=== PATIENT | female | born 1955 | race Caucasian/White ===

== ENCOUNTER 2020-01-14 17:05 | Inpatient (IN) | payer MEDICARE, OTHER ==
[~2020-01-14] VITALS: Ht 177.8 cm; Wt 93.2 kg
[~2020-01-14 17:05] MED LIST: KEFLEX500 MG PO; Z PROPRANOLOL HCL PO; Z.1.LISINOPRIL-HCT1 PO
[2020-01-14] MEDS ORDERED: LEVALBUTEROL HCL SOLN NEBU 1.25 MG/3 ML NEB INH ONE (18:15)
[2020-01-14] MEDS ORDERED: ENOXAPARIN INJ 80 MG/0.8 ML SYR SC STA (18:15)
[2020-01-14] MEDS ORDERED: IPRATROPIUM BROMIDE 0.02% 2.5 ML NEB NEB STA (18:15)
[2020-01-14] MEDS ORDERED: METHYLPREDNISOLONE SOD SUCC 125 MG/2ML VIAL IV STA (18:15)
[2020-01-14] MEDS ORDERED: SODIUM CHLORIDE 0.9% 1000ML 1,000 ML IV STA ×2 (18:15)
[2020-01-14 18:30] LABS: BASOPHILS % 0.3 % (0.0-1.0); EOSINOPHILS # (AUTO) 0.2 (0.0-0.4); EOSINOPHILS % 1.6 % (0.0-6.0); HEMATOCRIT 40.2 % (34.2-44.1); HEMOGLOBIN 12.7 g/dL (12.0-16.0); LYMPHOCYTES # (AUTO) 3.2 (1.0-3.2); LYMPHOCYTES % 27.3 % (18.0-39.1); MEAN CORPUSCULAR HEMOGLOBIN 26.2 pg (28-32); MEAN CORPUSCULAR HGB CONC 31.6 g/dL (31-35); MEAN CORPUSCULAR VOLUME 82.9 fL (81-99); MONOCYTES # (AUTO) 1.1 (0.2-0.8); MONOCYTES % 9.4 % (4.4-11.3); NEUTROPHILS # (AUTO) 7.1 (2.1-6.9); NEUTROPHILS % 60.9 % (38.7-80.0); PLATELET COUNT 321 x10e3/uL (140-360); RED BLOOD COUNT 4.85 x10e6/uL (3.6-5.1); RED CELL DISTRIBUTION WIDTH 13.7 % (11.7-14.4)
[2020-01-14] MEDS ORDERED: MORPHINE SULFATE 2 MG/ML SYR 1ML IV PRN (18:30)
[2020-01-14] MEDS ORDERED: ENOXAPARIN SODIUM INJ 100 MG/ML SYR SC SCH (18:30)
[2020-01-14] MEDS ORDERED: SODIUM CHLORIDE FLUSH 10 ML SYR INJ PRN (18:30)
[2020-01-14] MEDS ORDERED: ASPIRIN 81 MG CHEW TAB PO ONE (18:30)
[2020-01-14] MEDS ORDERED: NITROGLYCERIN 0.4 MG SUBL SL PRN (18:30)
[2020-01-14] MEDS ORDERED: FAMOTIDINE 20 MG/2 ML VIAL IV SCH (18:30)
[2020-01-14] MEDS ORDERED: ONDANSETRON HCL INJ 2MG/ML 2ML 2 MG/ML VIAL IV PRN (18:30)
[2020-01-14 18:34] LABS: INR 0.81; PROTHROMBIN TIME 11.6 seconds (11.9-14.5)
[2020-01-14 18:35] LABS: PARTIAL THROMBOPLASTIN TIME 30.1 seconds (23.8-35.5)
--- NOTE | 2020-01-14 18:42 | Emergency Department Note ---
History of Present Illnes History of Present Illness Chief Complaint: Respiratory History of Present Illness This is a 64 year old female . Historian: Patient Arrival Mode: Car Marketing Assistant Retail Division Required: No Past Medical/Family History Physician Review I have reviewed the patient's past medical and family history. Any updates have been documented here. 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, CONGENITAL, ADHESIONS shingles Past Surgical History: Appendectomy, Hysterectomy Social History Any Illegal Drug Use: No TB Exposure/Symptoms: No Physically hurt or threatened: No Family History Family history of heart diseas: No Other Last Tetanus: NO Any Pre-Existing Lines (PICC,: No Is patient up to date on immun: Yes Review of Systems ROS Narrative c/o sob with non radiating chest tightness worse at night denies n/v/d today Review of Systems Constitutional: Reports no symptoms EENTM: Reports no symptoms Cardiovascular: Reports chest pain Respiratory: Reports dyspnea, Reports dyspnea on exertion Gastrointestinal: Reports no symptoms Genitourinary: Reports no symptoms Musculoskeletal: Reports no symptoms Integumentary: Reports no symptoms Neurological: Reports no symptoms Psychological: Reports no symptoms Endocrine: Reports no symptoms Hematological/Lymphatic: Reports no symptoms Physical Exam Related Data Allergies: Coded Allergies: Penicillins (Verified Allergy, Unknown, 07/15/19) Triage Vital Signs Vital Signs Date Time Temp Pulse Resp B/P (MAP) Pulse Ox O2 Delivery O2 Flow Rate FiO2 01/14/20 18:15 98.2 60 16 137/65 97 Room Air Vital signs reviewed: Yes Physical Exam CONSTITUTIONAL Constitutional: Present well-developed, Present well-nourished HENT HENT: Present normocephalic, Present atraumatic, Present oropharynx clear/moist, Present nose normal HENT L/R: Present left ext ear normal, Present right ext ear normal EYES Eyes: Reports PERRL, Reports conjunctivae normal NECK Neck: Present ROM normal PULMONARY Pulmonary: Present effort normal, Present breath sounds normal CARDIOVASCULAR Cardiovascular: Present regular rhythm, Present heart sounds normal, Present capillary refill normal, Present normal rate GASTROINTESTINAL Abdominal: Present soft, Present nontender, Present bowel sounds normal GENITOURINARY Genitourinary: Present exam deferred SKIN Skin: Present warm, Present dry MUSCULOSKELETAL Musculoskeletal: Present ROM normal NEUROLOGICAL Neurological: Present alert, Present oriented x 3, Present no gross motor or sensory deficits PSYCHOLOGICAL Psychological: Present mood/affect normal, Present judgement normal Results Laboratory Result Diagram: 01/14/20 1812 Laboratory Laboratory Tests Test 01/14/20 18:12 White Blood Count 11.65 x10e3/uL (4.8-10.8) Red Blood Count 4.85 x10e6/uL (3.6-5.1) Hemoglobin 12.7 g/dL (12.0-16.0) Hematocrit 40.2 % (34.2-44.1) Mean Corpuscular Volume 82.9 fL (81-99) Mean Corpuscular Hemoglobin 26.2 pg (28-32) Mean Corpuscular Hemoglobin Concent 31.6 g/dL (31-35) Red Cell Distribution Width 13.7 % (11.7-14.4) Platelet Count 321 x10e3/uL (140-360) Neutrophils (%) (Auto) 60.9 % (38.7-80.0) Lymphocytes (%) (Auto) 27.3 % (18.0-39.1) Monocytes (%) (Auto) 9.4 % (4.4-11.3) Eosinophils (%) (Auto) 1.6 % (0.0-6.0) Basophils (%) (Auto) 0.3 % (0.0-1.0) Neutrophils # (Auto) 7.1 (2.1-6.9) Lymphocytes # (Auto) 3.2 (1.0-3.2) Monocytes # (Auto) 1.1 (0.2-0.8) Eosinophils # (Auto) 0.2 (0.0-0.4) Basophils # (Auto) 0.0 (0.0-0.1) Absolute Immature Granulocyte (auto 0.06 x10e3/uL (0-0.1) Prothrombin Time 11.6 seconds (11.9-14.5) Prothromb Time International Ratio 0.81 Activated Partial Thromboplast Time 30.1 seconds (23.8-35.5) Lab results reviewed: Yes Imaging Imaging results reviewed: Yes Diagnostics Tests Diagnostic test(s) reviewed: Yes Procedures 12 Lead ECG Interpretation ECG Interpretation : ECG: ECG 1 Marketing Assistant Retail Division: Interpreted by ED physician Date: Jan 14, 2020 Time: 18:10 Prior ECG tracings: reviewed Rhythm: sinus bradycardia Conduction: incomplete RBBB Assessment & Plan Medical Decision Making MDM blood work, CXR, EKG to R/O cardiac event Discussed admission with patient while in triage assessing sergio. All questions answered. Assessment & Plan Final Impression: (1) COPD (chronic obstructive pulmonary disease) (2) Dyspnea (3) Chest pain Depart Disposition: ADMITTED Last Vital Signs Date Time Temp Pulse Resp B/P (MAP) Pulse Ox O2 Delivery O2 Flow Rate FiO2 01/14/20 18:15 98.2 60 16 137/65 97 Room Air Home Meds Active Scripts Cephalexin Monohydrate (KEFLEX) 500 Mg Capsule, 500 MG PO Q6HR, #40 TAB 0 Refills Prov:MELCHOR SHIELDS DO 07/15/19 Reported Medications Propranolol Hcl (Propranolol Hcl) 40 Mg Tablet, 2 TAB PO BID 01/14/12 Lisinopril/Hydrochlorothiazide (Lisinopril-Hctz 20-12.5 Mg Tab) 1 Each Tablet, 2 EACH PO BID 01/14/12 Medications in the ED Ipratropium [place] 2.5 ml ONCE STAT NEB ; Start 01/14/20 at 18:15; Stop 01/14/20 at 18:23; Status DC Aspirin 324 mg ONCE PO ; Start 01/14/20 at 18:45; Stop 01/14/20 at 19:59 Sodium Chloride 1,000 ml @ 0 mls/hr Q0M STAT IV ; Start 01/14/20 at 18:15; Stop 01/14/20 at 18:23; Status DC Sodium Chloride 1,000 ml @ 125 mls/hr Q8H STAT IV ; Start 01/14/20 at 18:15; Stop 01/15/20 at 02:14 Levofloxacin/ Dextrose 100 ml @ 100 mls/hr ONCE STAT IV ; Start 01/14/20 at 18:15; Stop 01/14/20 at 19:14; Status UNV Methylprednisolone Sodium Succinate 125 mg ONCE STAT IV ; Start 01/14/20 at 18:15; Stop 01/14/20 at 18:23; Status DC Famotidine 20 mg ONCE STAT IV ; Start 01/14/20 at 18:15; Stop 01/14/20 at 18:16; Status UNV Levalbuterol HCl 2.25 mg ONCE ONCE INH ; Start 01/14/20 at 18:15; Stop 01/14/20 at 18:23; Status DC Enoxaparin Sodium 90 mg NOW STAT SC ; Start 01/14/20 at 18:15; Stop 01/14/20 at 18:16; Status UNV Aspirin 81 mg QAM PO ; Start 01/15/20 at 09:00; Stop 02/14/20 at 08:59 Enoxaparin Sodium 90 mg Q12H SC ; Start 01/14/20 at 18:30; Stop 01/21/20 at 18:29; Status UNV Metoprolol Tartrate 25 mg Q12H PO ; Start 01/14/20 at 18:30; Stop 02/13/20 at 18:29; Status UNV Lisinopril 10 mg DAILY PO ; Start 01/15/20 at 09:00; Stop 02/14/20 at 08:59 Nitroglycerin 0.4 mg Q5M PRN SL CHEST PAIN; Start 01/14/20 at 18:30; Status UNV Morphine Sulfate 2 mg Q3H PRN IV MODERATE PAIN (4-6); Start 01/14/20 at 18:30; Stop 01/21/20 at 18:29; Status UNV Simvastatin 20 mg HS PO ; Start 01/14/20 at 21:00; Stop 02/13/20 at 20:59; Status UNV Famotidine 20 mg Q12H IV ; Start 01/14/20 at 18:30; Stop 02/13/20 at 18:29; Status UNV Ondansetron HCl 4 mg Q4H PRN IV NAUSEA AND VOMITING; Start 01/14/20 at 18:30; Stop 02/13/20 at 18:29; Status UNV Levalbuterol HCl 1.25 mg RQ6H INH ; Start 01/14/20 at 19:00; Stop 02/13/20 at 18:59; Status UNV Ipratropium [place] 2.5 ml RQ6H NEB ; Start 01/14/20 at 19:00; Stop 02/13/20 at 18:59; Status UNV Aspirin 81 mg PRN ONCE PO ; Start 01/14/20 at 18:30; Stop 01/14/20 at 18:39; Status DC Sodium Chloride 10 ml PRN PRN INJ IV SITE FLUSH; Start 01/14/20 at 18:30; Stop 02/13/20 at 18:29; Status UNV Methylprednisolone Sodium Succinate 40 mg Q6HR IV ; Start 01/15/20 at 00:00; Stop 01/22/20 at 00:00; Status UNV NOLAN BLACKBURN Jan 14, 2020 18:42
[2020-01-14 18:43] LABS: ALANINE AMINOTRANSFERASE 15 IU/L (0-55); ALBUMIN 3.7 g/dL (3.5-5.0); ALKALINE PHOSPHATASE 78 IU/L (40-150); ANION GAP 11.7 mmol/L (8-16); BLOOD UREA NITROGEN 14 mg/dL (7-26); BUN/CREATININE RATIO 17 (6-25); CALCIUM 9.7 mg/dL (8.4-10.2); CARBON DIOXIDE 29 mmol/L (22-29); CHLORIDE 97 mmol/L (98-107); CREATINE KINASE 57 IU/L (29-168); CREATININE, SERUM 0.84 mg/dL (0.57-1.11); EST GLOMERULAR FILTRATION RATE > 60 ML/MIN (60-); GLUCOSE 84 mg/dL (74-118); LIPASE 31 U/L (8-78); POTASSIUM 3.7 mmol/L (3.5-5.1); SODIUM 134 mmol/L (136-145)
[2020-01-14] MEDS ORDERED: ASPIRIN 81 MG CHEW TAB PO NR (18:45)
[2020-01-14] MEDS ORDERED: METHYLPREDNISOLONE SOD SUCC 125 MG/2ML VIAL IV NR (18:45)
[2020-01-14] MEDS ORDERED: FAMOTIDINE 20 MG/2 ML VIAL IV NR (18:45)
[2020-01-14] MEDS: IPRATROPIUM BROMIDE 0.02% 2.5 ML NEB NEB SCH ×2 (19:00→23:30)
[2020-01-14] MEDS: LEVALBUTEROL HCL SOLN NEBU 1.25 MG/3 ML NEB INH SCH ×2 (19:00→23:30)
--- NOTE | 2020-01-14 19:16 | Diagnostic Imaging Report ---
EXAMINATION: CHEST SINGLE (PORTABLE) INDICATION: ^ERMD ORDER ^[id number] ^1855 ^Y COMPARISON: None FINDINGS: AP view TUBES and LINES: None. LUNGS: Lungs are well inflated. There is no evidence of pneumonia or pulmonary edema. PLEURA: No pleural effusion or pneumothorax. HEART AND MEDIASTINUM: The cardiomediastinal silhouette is unremarkable. BONES AND SOFT TISSUES: No acute osseous lesion. Soft tissues are unremarkable. UPPER ABDOMEN: No free air under the diaphragm. IMPRESSION: No acute thoracic abnormality. Signed by: Dr. Dewayne Contreras MD on 01/14/2020 7:12 PM
[2020-01-14] MEDS ORDERED: IOPAMIDOL 370 MG/ML 200 ML INFUS..BTL INJ ONE (21:14)
[2020-01-14] MEDS ORDERED: SODIUM CHLORIDE 0.9% 50ML 50 ML ONE (21:14)
--- NOTE | 2020-01-14 21:27 | Diagnostic Imaging Report ---
EXAM: CT Chest WITH contrast (PE Protocol) INDICATION: Short of breath, chest tightness COMPARISON: Same-day chest x-ray TECHNIQUE: Chest was scanned utilizing a multidetector helical scanner from the lung apex through the level of the diaphragm after administration of IV contrast. Thin section reconstructions were obtained with special concentration on the pulmonary arteries. Coronal and sagittal reformations were obtained. Pulmonary embolism protocol was performed. IV CONTRAST: 100 mL of Isovue 370 COMPLICATIONS: None RADIATION DOSE: Total DLP: 526 mGy*cm Estimated effective dose: (DLP x 0.014 x size factor) mSv CTDIvol has been reviewed. It is below the limits set by the Radiation Protocol Committee (RPC). Dose modulation, iterative reconstruction, and/or weight based adjustment of the mA/kV was utilized to reduce the radiation dose to as low as reasonably achievable. FINDINGS: LINES/ TUBES: None. LUNGS AND AIRWAYS: Centrilobular emphysematous changes in the mid to upper lungs. Subtle focal tree-in-bud opacities in the posterior right upper lobe. Mild central bronchial wall thickening. Scarring/volume loss/atelectasis in the lingula. Subtle focal groundglass opacity in the anterior basal left lower lobe. Minimal bibasilar atelectasis. A few small epithelial based nodules measure approximately 3 mm the lower anterior trachea and central mainstem bronchus (series 2 image 24). PLEURA: The pleural spaces are clear. HEART AND MEDIASTINUM: The thyroid gland is normal. No mediastinal, hilar or axillary lymphadenopathy. The heart is normal in size. There is no pericardial effusion. Calcifications of the aorta and major branches including the left anterior descending and left circumflex coronary arteries. UPPER ABDOMEN: Small sliding gastric hernia hernia with mild distal esophageal wall thickening. BONES: Degenerative changes. SOFT TISSUES: Unremarkable. IMPRESSION: Findings of bronchitis and pulmonary emphysema with a few subtle foci of bronchiolitis. Subtle epithelial based nodules in the trachea and mainstem bronchi, could be papillomas. Recommend pulmonology referral for consideration of bronchoscopy. Coronary artery calcific atherosclerosis. Borderline cardiomegaly.. Small sliding gastric hernia hernia with mild distal esophagitis. Signed by: Robin Jeffrey DO on 01/14/2020 9:24 PM
[2020-01-14] MEDS: SIMVASTATIN 20 MG TAB PO SCH (22:32)
[2020-01-14] MEDS: METOPROLOL TARTRATE 25 MG TAB PO SCH (22:33)
[2020-01-14] MEDS ORDERED: SODIUM CHLORIDE 0.9% 1000ML 2,000 ML ONE (22:47)
[2020-01-14] MEDS ORDERED: ZOLPIDEM TARTRATE 5 MG TAB PO PRN (23:00)
[2020-01-14] MEDS ORDERED: DOCUSATE SODIUM 100 MG CAP PO PRN (23:00)
[2020-01-14] MEDS ORDERED: ACETAMINOPHEN 325 MG TAB PO PRN (23:00)
[2020-01-14] MEDS ORDERED: METHYLPREDNISOLONE SOD SUCC 125 MG/2ML VIAL ONE (23:04)
[2020-01-14] MEDS: LEVOFLOXACIN 500MG/D5W 100ML 100 ML IV ONE ×2 (23:06→23:30)
[2020-01-14] MEDS ORDERED: LEVOFLOXACIN 500MG/D5W 100ML 100 ML IV ONE (23:12)
[2020-01-14] MEDS ORDERED: AZTREONAM IV SCH (23:15)
[2020-01-14] MEDS ORDERED: WATER STERILE IV SCH (23:15)
[2020-01-14] MEDS ORDERED: AZTREONAM 1 GM/NS 50 ML 50 ML IV ONE (23:27)
[2020-01-15] VITALS (8 sets, daily range): BP systolic 106–133; BP diastolic 45–83
[2020-01-15] MEDS: METHYLPREDNISOLONE SOD SUCC 40 MG/ML VIAL 1ML IV SCH ×4 (00:16→18:02)
[2020-01-15] MEDS: AZITHROMYCIN 500MG/NS 250 ML 250 ML IV SCH (00:35)
[2020-01-15 01:22] LABS: BILIRUBIN,URINE NEGATIVE (NEGATIVE); CLARITY,URINE CLEAR (CLEAR); COLOR,URINE YELLOW (YELLOW); KETONES,URINE NEGATIVE (NEGATIVE); LEUKOCYTE ESTERASE ,URINE 1+ (NEGATIVE); NITRITE,URINE NEGATIVE (NEGATIVE); PROTEIN,URINE DIPSTICK NEGATIVE (NEGATIVE); URINE UROBILINOGEN 0.2 mg/dL (0.2 - 1)
[2020-01-15 01:41] LABS: BACTERIA,URINE MODERATE /HPF; EPITHELIAL CELLS,URINE FEW /LPF
[2020-01-15 02:29] LABS: CREATINE KINASE 54 IU/L (29-168)
--- NOTE | 2020-01-15 05:00 | NUR ---
Patient arrived from ED to Rm 288 as new admit. Admit dx was CP. Pt alert and oriented x3. Ambulatory in room prn. On telemetry monitoring. Denies CP at this time. Call de leon within reach. Will monitor closely.
--- NOTE | 2020-01-15 06:08 | NUR ---
H&P cc: sob HPI: 64yoF, PCP in [place], developed worsening SOB. Pt does have hx smoking; CT abnormal; PMH: shingles, HTN, hx cig use, HLD PSHx: hysterectomy, appendecomty Allergies; see emr HF/HS; single; hx cigs meds; see MAR ROS: no f/c/sN/V/D/YEE/cp/dizizness/confusion/vision changes/focal limb weakness v/s; revd PE tired apeparing anicteric ns1s2 reduced bS throughout; no w soft nt nd no e/t skin dry n. affect labs/meds revd A/P: 64yoF Acute exa Emphysema- steroids/nebs/loratadine/antitussives; iV aztrenam/azithromycin ABnormal CT chest- pulm consult HTN- cont home meds Nicotine dependence in remission- f/u outpt for DEXA; supportive UTI- IV aztreonam PHysical deconditioning- PT HLD- statin Prop: lovenox; pepcid dispo; Pulm consult; Kumar Kulkarni MD, PHD.
[2020-01-15] MEDS: METOPROLOL TARTRATE 25 MG TAB PO SCH ×2 (06:10→18:02)
--- NOTE | 2020-01-15 06:33 | NUR ---
Called and spoke with Dr. Jeff to notify of new consult. MD aware and will see pt this morning.
--- NOTE | 2020-01-15 06:38 | NUR ---
Dr. Kulkarni came and saw pt in room. aware of pt condition.
[2020-01-15 08:06] LABS: BASOPHILS % 0.2 % (0.0-1.0); HEMOGLOBIN 12.3 g/dL (12.0-16.0); MEAN CORPUSCULAR HEMOGLOBIN 26.5 pg (28-32); MEAN CORPUSCULAR HGB CONC 31.5 g/dL (31-35); MEAN CORPUSCULAR VOLUME 83.9 fL (81-99); MONOCYTES # (AUTO) 0.1 (0.2-0.8); MONOCYTES % 0.6 % (4.4-11.3); NEUTROPHILS # (AUTO) 8.5 (2.1-6.9); NEUTROPHILS % 88.3 % (38.7-80.0); PLATELET COUNT 304 x10e3/uL (140-360); RED BLOOD COUNT 4.65 x10e6/uL (3.6-5.1); RED CELL DISTRIBUTION WIDTH 13.7 % (11.7-14.4)
[2020-01-15 08:39] LABS: ALANINE AMINOTRANSFERASE 16 IU/L (0-55); ALBUMIN 3.4 g/dL (3.5-5.0); ALBUMIN/GLOBULIN RATIO 0.9 (0.8-2.0); ALKALINE PHOSPHATASE 69 IU/L (40-150); ANION GAP 11.8 mmol/L (8-16); BLOOD UREA NITROGEN 11 mg/dL (7-26); BUN/CREATININE RATIO 13 (6-25); CALCIUM 9.2 mg/dL (8.4-10.2); CARBON DIOXIDE 26 mmol/L (22-29); CHLORIDE 99 mmol/L (98-107); CHOL/HDL RATIO 3.6 (3.0-3.6); CHOLESTEROL 213 MD/DL (0-199); CREATININE, SERUM 0.84 mg/dL (0.57-1.11); EST GLOMERULAR FILTRATION RATE > 60 ML/MIN (60-); GLUCOSE 140 mg/dL (74-118); HDL CHOLESTEROL 59 MG/DL (40-60); LDL CHOLESTEROL 141 MG/DL (60-130); MAGNESIUM 1.9 MG/DL (1.3-2.1); POTASSIUM 3.8 mmol/L (3.5-5.1); SODIUM 133 mmol/L (136-145); TRIGLYCERIDES 65 MG/DL (0-149)
[2020-01-15 08:55] LABS: CREATINE KINASE MB 1.8 ng/mL (0-5.0)
[2020-01-15] MEDS: AZTREONAM (AZACTAM) 0.5 GM in SODIUM CHLORIDE 0.9% 50ML 50 ML IV SCH ×2 (09:00→17:00)
[2020-01-15] MEDS: ASPIRIN 81 MG ENTERIC COATED PO SCH (09:27)
[2020-01-15] MEDS: FAMOTIDINE 20 MG/2 ML VIAL IV SCH ×2 (09:27→21:10)
[2020-01-15] MEDS: LISINOPRIL 10 MG TAB PO SCH (09:28)
[2020-01-15] MEDS: IPRATROPIUM BROMIDE 0.02% 2.5 ML NEB NEB SCH ×3 (09:30→19:00)
[2020-01-15] MEDS: LEVALBUTEROL HCL SOLN NEBU 1.25 MG/3 ML NEB INH SCH ×3 (09:30→19:00)
--- NOTE | 2020-01-15 09:45 | NUR ---
PAGED DR. PEOPLES. DEVENDRA TO ADMINISTER PLAVIX 600 MG ONCE PER THE
[2020-01-15] MEDS ORDERED: CLOPIDOGREL BISULFATE 75 MG TAB PO ONE (10:00)
--- NOTE | 2020-01-15 10:45 | Consultation ---
DATE OF CONSULTATION: 01/15/2020 Cardiac Consultation REASON FOR CONSULTATION: Chest pain. HISTORY: A 64-year-old lady, who is known with longstanding history of emphysema. She is an ex-smoker, who stopped in the s. As per the patient, she continued to have emphysema, although she stopped smoking. She does have episodes of wheezes and not feeling well. However, since September she started using mask, may be she inhaled some particle of the mask, besides her usual emphysema symptoms, she is having chest pressure, chest tightness on exertion, relieved by rest. Her symptoms are becoming progressively worse. Finally, her symptoms becoming very severe and she is unable to do much of activity without the chest pressure and chest tightness, which is definitely different from her usual emphysema. She decided to come to the emergency room. The patient admitted for further management. Cardiac consultation is obtained. I visited with the patient, she told me about her usual emphysema symptoms and this chest pressure, chest tightness. The patient has had serial cardiac enzymes, which are normal. She was started on simvastatin, aspirin, metoprolol, Lovenox by emergency room physician in addition to her RONAL inhibitors. REVIEW OF SYSTEMS: GENERAL: No fever, no chills. HEENT: No vision problem. No hearing problem. PULMONARY: Chronic shortness of breath and emphysema and episodes of wheezes. CARDIAC: Definite new type of symptoms as described above. GI: No hematemesis. No melena. : No hematuria, no dysuria. MUSCULOSKELETAL: No aches. No pain. GENERAL: No fever, no chills. ENDOCRINE: No history of diabetes mellitus. SOCIAL HISTORY: She is a divorcee. 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 She has stopped smoking in the s. She does not drink alcohol. HOME MEDICATIONS: Lisinopril/hydrochlorothiazide 10/12.5, one tablet twice a day. Inderal 40 mg twice a day. ALLERGIES: PENICILLIN. PAST MEDICAL HISTORY: 1. She has born with single kidney. 2. Hysterectomy. 3. Appendectomy. 4. Emphysema. 5. History of shingles, few months back. FAMILY HISTORY: Father is unknown. Family history, mother at age 84 with Alzheimer's. She had atrial fibrillation. There is no full brothers and sister. She lost only half brother with congestive heart failure at age 39. She lost a sister for complication of COPD and another sister with ICD and congestive heart failure. Two healthy sons. No daughter. PHYSICAL EXAMINATION: VITAL SIGNS: Height of 5 feet 10 inches, weight of 206 pounds, blood pressure 120/60, heart rate of 80, respiratory rate of 18, afebrile. HEENT: Pupils are reactive. NECK: No elevation of jugular venous pulsation. No bruit. CHEST: Clear to auscultation and percussion. HEART: PMI 5th left intercostal space. Normal first and second heart sound. ABDOMEN: Soft with good bowel sounds. No organomegaly. No abdominal bruits. EXTREMITIES: No signs, no clubbing, no edema. Decreased feet pulses more pronounced in the left lower extremity. NEUROLOGIC: Awake, alert, and oriented. Nonfocal. LABORATORY DATA: Sodium of 134, potassium 3.7, BUN of 14, creatinine of 0.84, glucose of 84. White blood cell count of 11.6, hemoglobin 12.7, hematocrit 40%, platelet count of 321,000. BNP of 38. Serial troponins are normal. CT chest showing emphysema changes, small effusion, cardiomegaly, calcified coronary. EKG showing incomplete right bundle branch block. Nonspecific ST changes. IMPRESSION AND PLAN: 1. Angina symptoms, which is totally different from the patient's chronic obstructive pulmonary disease symptoms, progressively worse. 2. Chronic obstructive pulmonary disease and emphysema. 3. Hypertension. 4. Ex-smoker. 5. History of single kidney. RECOMMENDATIONS: The patient already ruled out for myocardial infarction with option of workups are discussed between medical therapy, noninvasive workup, and invasive workup. This patient already got calcified coronary. Her symptoms are impressive and options are discussed. Recommending cardiac catheterization. The patient will be loaded with Plavix. We will check her lipid profile. We will continue her RONAL inhibitors. We will continue beta kevin. The patient verbalized understanding of her condition and options of workup and treatment. She is going to make a decision. A very lengthy visit with a lot of questioning for more than 60 minutes. MD GAURANG Rdz/MEEAR /[id number]
[2020-01-15] MEDS ORDERED: ENOXAPARIN SODIUM INJ 100 MG/ML SYR SC SCH (11:00)
[2020-01-15 13:00] LABS: CREATINE KINASE 57 IU/L (29-168)
--- NOTE | 2020-01-15 14:40 | NUR ---
PAGED DR. GRUBER OFFICE REGARDING NEW CONSULT.
--- NOTE | 2020-01-15 16:42 | NUR ---
PAGED RESPIRATORY AND INFORMED NEW ORDER PFT
[2020-01-15] MEDS ORDERED: ZOLPIDEM TARTRATE 5 MG TAB PO PRN (18:45)
--- NOTE | 2020-01-15 19:00 | NUR ---
RECEIVED PATIENT IN BEDSIDE SHIFT REPORT. PATIENT RESTING IN BED AT THIS TIME. NO PAIN REPORTED. NO S&S OF DISTRESS NOTED. BED LOCKED IN LOWEST POSITION, SIDE RAILS UPX2, CALL LIGHT IN REACH.
--- NOTE | 2020-01-15 19:09 | NUR ---
BEDSIDE SHIFT REPORT GIVEN TO THE FORKLIFT TRUCK MECHANIC RN. PT DENIED FURTHER NEEDS.
--- NOTE | 2020-01-15 20:08 | Consultation ---
DATE OF CONSULTATION: Pulmonary Consultation The patient of Dr. Kumar Kulkarni and Dr. Jeff. HISTORY OF PRESENT ILLNESS: Rose 64-year-old woman, admitted with atypical chest pain on the , pain was central. She was seen by Dr. Jeff and cardiac catheterization is scheduled. CT of the chest revealed nodular lesions in the trachea and lower main bronchi. Bronchoscopy was recommended by the radiologist. Differential diagnosis include tumor, papilloma, or mucus. The patient is an ex-smoker, smoked for pack-a-day for some 20 years and was diagnosed as having COPD in 1989. 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 She was born in [place], [place]. FAMILY HISTORY: Positive for coronary artery disease in half-sib. HOME MEDICATIONS: Include lisinopril and hydrochlorothiazide. PAST SURGICAL HISTORY: She has had hysterectomy and appendectomy. PHYSICAL EXAMINATION: GENERAL: A moderately obese white female, in no acute distress. Somewhat anxious. VITAL SIGNS: Temperature 98.3, pulse 86, respirations 15, and blood pressure 126/63. HEAD: Normocephalic and atraumatic. EYES: Extraocular movements intact. LUNGS: Diminished breath sounds. HEART: Regular rhythm. ABDOMEN: Nontender. EXTREMITIES: Nonedematous. LABORATORY DATA: White count was elevated on admission. IMPRESSION: Bronchiolitis, retained requesting bronchoscopy. Explained that if this would to be done, we have to have cardiac clearance, which would likely mean that she had no significant coronary artery disease and that biopsies could not be obtained, as she has had been loaded with Plavix. Requests spirometry. Continue bronchodilators. Moderate dose corticosteroids. Continue empiric antibiotic. She is currently on Levaquin and Zithromax . Thank you for this kind referral. MD ALCIDES Peña/MODL /[id number]
[2020-01-15] MEDS: ALPRAZOLAM 0.25 MG TAB PO PRN (21:10)
[2020-01-15] MEDS: SIMVASTATIN 20 MG TAB PO SCH (21:10)
--- NOTE | 2020-01-15 21:10 | NUR ---
AFTER RECEIVING SIMVASTATIN, PATIENT STATED SHE DID NOT WANT TO TAKE CHOLESTEROL MEDICATION D/T POSSIBLE SIDE EFFECTS. WILL INFORM NURSE AND MD IN AM THAT PATIENT IS REFUSING THEM FURTHER.
[2020-01-15] MEDS ORDERED: MELATONIN 5 MG TABLET PO PRN (22:30)
[2020-01-16] VITALS (8 sets, daily range): BP systolic 114–127; BP diastolic 47–74
[2020-01-16] MEDS: AZITHROMYCIN 500MG/NS 250 ML 250 ML IV SCH (00:06)
[2020-01-16] MEDS: METHYLPREDNISOLONE SOD SUCC 40 MG/ML VIAL 1ML IV SCH ×4 (00:52→17:10)
[2020-01-16] MEDS: IPRATROPIUM BROMIDE 0.02% 2.5 ML NEB NEB SCH ×4 (01:00→19:40)
[2020-01-16] MEDS: LEVALBUTEROL HCL SOLN NEBU 1.25 MG/3 ML NEB INH SCH ×4 (01:00→19:40)
[2020-01-16] MEDS: AZTREONAM (AZACTAM) 0.5 GM in SODIUM CHLORIDE 0.9% 50ML 50 ML IV SCH ×3 (02:28→18:16)
[2020-01-16] MEDS: SODIUM CHLORIDE 0.9% 1000ML 1,000 ML IV SCH ×2 (04:54→17:21)
[2020-01-16] MEDS: METOPROLOL TARTRATE 25 MG TAB PO SCH (06:30)
[2020-01-16] MEDS ORDERED: CLOPIDOGREL BISULFATE 75 MG TAB PO SCH (09:00)
--- NOTE | 2020-01-16 09:16 | NUR ---
IM- progress note O/N see below ROS: no f/c/sN/V/D/YEE/cp/dizizness/confusion/vision changes/focal limb weakness v/s; revd PE tired apeparing anicteric ns1s2 reduced bS throughout; no w soft nt nd no e/t skin dry n. affect labs/meds revd A/P: 64yoF Acute exa Emphysema- steroids/nebs/loratadine/antitussives; iV aztrenam/azithromycin ABnormal CT chest- pulm consult HTN- cont home meds Nicotine dependence in remission- f/u outpt for DEXA; supportive UTI- IV aztreonam PHysical deconditioning- PT HLD- statin Prop: lovenox; pepcid dispo; Pulm consult; 01-16-20 heart procedure today; bronch tomorrow; Kumar Kulkarni MD, PHD.
[2020-01-16] MEDS: FAMOTIDINE 20 MG/2 ML VIAL IV SCH ×2 (09:42→22:39)
[2020-01-16] MEDS ORDERED: MIDAZOLAM HCL 2 MG/2 ML VIAL ONE (10:23)
[2020-01-16] MEDS ORDERED: FENTANYL CITRATE/PF 100MCG/2 ML INJ ONE (10:24)
[2020-01-16] MEDS ORDERED: LIDOCAINE HCL 2% LOCAL 20 ML VIAL ONE (10:24)
[2020-01-16] MEDS ORDERED: SODIUM CHLORIDE 0.9% 1000ML 1,000 ML ONE (10:25)
[2020-01-16] MEDS ORDERED: IOPAMIDOL 370 MG/ML 200 ML INFUS..BTL INJ ONE (10:25)
[2020-01-16] MEDS ORDERED: HEPARIN SOD/SOD CHLORIDE 2,000 ML ONE (10:25)
--- NOTE | 2020-01-16 10:25 | NUR ---
PT OFF UNIT FOR PROCEDURE IN SAFE CONDITION.
--- NOTE | 2020-01-16 11:30 | NUR ---
PT IS BACK TO THE UNIT AFTER PROCEDURE. SITE IS [facility]. PT IS RESTING ON BED IN SUPINE POSITION. BED IS FLAT. CALL LIGHT WITH IN EASY REACH. PT DENIES NEEDS AT THIS TIME.
--- NOTE | 2020-01-16 11:35 | NUR ---
UPON ARRIVAL FROM TAXICAB COORDINATOR, REDNESS AND MILD SKIN TEAR NOTED FROM TELEMETRY PATCH ON LEFT SIDE UPPER ABDOMEN.
--- NOTE | 2020-01-16 12:57 | Operative Report ---
DATE OF PROCEDURE: 01/16/2020 SURGEON: Phil Jeff MD TITLE OF THE PROCEDURE: Left cardiac catheterization. INDICATION: Acute coronary syndrome. The patient continued to have chest pain with several cardiac risk factors, so she was taken urgently to the roofing laborer. TECHNICAL DETAILS: After the usual sterile preparation and draping procedure, intravenous Versed and fentanyl given for sedation, local Xylocaine for anesthesia. A 4-Senegalese sheath established in place, Idalmis left 4 and 3DRC catheter used to engage the coronary, pigtail for hemodynamic measurement and left ventriculogram. At the end of the procedure, sheath was removed. Hemostasis was achieved manually. No complication. No blood loss. RESULTS: Coronary angiogram: 1. Left main: Free of disease. 2. LAD: Proximal ostial 30% and proximal 30% lesion. 3. Circumflex: Coronary artery giving large OM and 30% to 40% lesion. 4. Right coronary artery: Minimal plaquing. Hemodynamic: Aorta pressure 120/80, LV pressure 120/20. Left ventriculogram: Right anterior oblique view showed normal size ventricle with ejection fraction of 65%. IMPRESSION: 1. Mild coronary artery disease. 2. Right coronary artery is dominant. 3. Left ventricular ejection fraction of 65%. RECOMMENDATION: Medical therapy. COMPLICATION: None. BLOOD LOSS: None. Phil Jeff MD MOJ/MODL /[id number]
[2020-01-16] MEDS: ASPIRIN 81 MG ENTERIC COATED PO SCH (15:24)
[2020-01-16] MEDS: LISINOPRIL 10 MG TAB PO SCH (16:00)
--- NOTE | 2020-01-16 18:08 | NUR ---
REDNESS NOTED ON UPPER EXTREMITIES AND MID CHEST LIVIER. PT IS AOOX4. PAGED DR. SESAY AND INFORMED THE SAME.
[2020-01-16] MEDS ORDERED: DOXEPIN HCL 25 MG CAP PO PRN (18:15)
--- NOTE | 2020-01-16 19:05 | NUR ---
BEDSIDE SHIFT REPORT GIVEN TO THE SUPERVISOR FERTILIZER PROCESSING RN. PT DENIED FURTHER NEEDS
--- NOTE | 2020-01-16 19:08 | NUR ---
BEDSIDE SHIFT REPORT GIVEN TO THE RADIO ANNOUNCER RN. PT DENIED FURTHER NEEDS.
--- NOTE | 2020-01-16 19:09 | NUR ---
Patient received sitting in bed. AAO x 4. Patient had no complaints of pain. Respirations even and non-labored. IVF infusing at 50 cc/hr. Safety measures in place. Patient instructed to call for assistance when needed. Call light within reach.
[2020-01-16] MEDS: SIMVASTATIN 20 MG TAB PO SCH (22:39)
[2020-01-16] MEDS: ALPRAZOLAM 0.25 MG TAB PO PRN (23:35)
[2020-01-17] VITALS (7 sets, daily range): BP systolic 101–138; BP diastolic 56–73
[2020-01-17] MEDS: AZITHROMYCIN 500MG/NS 250 ML 250 ML IV SCH ×2 (00:05→23:03)
[2020-01-17] MEDS: METHYLPREDNISOLONE SOD SUCC 40 MG/ML VIAL 1ML IV SCH ×4 (00:21→17:05)
[2020-01-17] MEDS: IPRATROPIUM BROMIDE 0.02% 2.5 ML NEB NEB SCH ×4 (01:00→19:35)
[2020-01-17] MEDS: LEVALBUTEROL HCL SOLN NEBU 1.25 MG/3 ML NEB INH SCH ×4 (01:00→19:35)
[2020-01-17] MEDS: AZTREONAM (AZACTAM) 0.5 GM in SODIUM CHLORIDE 0.9% 50ML 50 ML IV SCH ×3 (03:26→16:56)
--- NOTE | 2020-01-17 07:00 | NUR ---
BEDSIDE SHIFT REPORT RECEIVED FROM THE LEAD PORTFOLIO MANAGER RN. EDUCATED PT ABOUT FALL PRECAUTIONS. PT VERBALIZED UNDERSTANDING. CALL LIGHT WITH IN EASY REACH. BED IS LOW AND LOCKED. SIDE RAILS X2. PT DENIES NEEDS AT THIS TIME.
--- NOTE | 2020-01-17 07:00 | NUR ---
Walking rounds done. Patient resting comfortably. BSSR given to oncoming nurse regarding patient's status.
--- NOTE | 2020-01-17 09:30 | NUR ---
PT OFF UNIT FOR PROCEDURE IN SAFE CONDITION.
[2020-01-17] MEDS ORDERED: ACETYLCYSTEINE 200 MG/ML 4ML VIAL ONE (09:54)
[2020-01-17] MEDS ORDERED: LIDOCAINE HCL 2% 30 ML TUBE ONE (09:55)
[2020-01-17] MEDS ORDERED: LIDOCAINE HCL 4% 50 ML BTL ONE (09:55)
[2020-01-17] MEDS ORDERED: OXYMETAZOLINE HCL 0.05% NAS 1 SPRAY BTL ONE (09:55)
--- NOTE | 2020-01-17 11:00 | NUR ---
PT IS BACK TO THE UNIT AFTER PROCEDURE. PT DENIES NEEDS AT THIS TIME.
[2020-01-17] MEDS: FAMOTIDINE 20 MG/2 ML VIAL IV SCH ×2 (11:08→21:40)
--- NOTE | 2020-01-17 11:45 | Operative Report ---
DATE OF PROCEDURE: SURGEON: Pola Cornelius MD PROCEDURE: Bronchoscopy. The patient of Dr. Kumar Kulkarni and Dr. Jeff. INDICATION: The patient with multiple nodular lesions in the trachea. ANESTHESIA: General anesthesia was provided by Dr. Valladares. PROCEDURE IN DETAIL: A #5 LMA was employed. Movement of vocal cords could not be evaluated. There was mild laryngitis, moderate tracheobronchitis and small amount of white secretions were noted, right lower lobe and left lower lobe. Multiple benign-appearing nodular lesions, approximately 2 to 3 mm in size were noted throughout the trachea. Biopsies were not attempted, as the patient had been on Plavix. Brushings were obtained. The patient tolerated the procedure well and was taken to recovery. No blood loss noted. MD ALCIDES Peña/MODL /[id number]
[2020-01-17] MEDS: LISINOPRIL 10 MG TAB PO SCH (12:20)
--- NOTE | 2020-01-17 13:08 | NUR ---
IM- progress note O/N see below ROS: no f/c/sN/V/D/YEE/cp/dizizness/confusion/vision changes/focal limb weakness v/s; revd PE tired apeparing anicteric ns1s2 reduced bS throughout; no w soft nt nd no e/t skin dry n. affect labs/meds revd A/P: 64yoF Acute exa Emphysema- steroids/nebs/loratadine/antitussives; iV aztrenam/azithromycin ABnormal CT chest- pulm consult HTN- cont home meds Nicotine dependence in remission- f/u outpt for DEXA; supportive UTI- IV aztreonam PHysical deconditioning- PT HLD- statin Prop: lovenox; pepcid dispo; Pulm consult; ' 01-16-20 heart procedure today; bronch tomorrow; 01-16 f/u heart procedure and bronch. Kumar Kulkarni MD, PHD.
[2020-01-17] MEDS: SODIUM CHLORIDE 0.9% 1000ML 1,000 ML IV SCH (16:56)
--- NOTE | 2020-01-17 19:05 | NUR ---
BEDSIDE SHIFT REPORT GIVEN TO THE [employer] EXPERT RN. PT DENIED FURTHER NEEDS.
[2020-01-17] MEDS: SIMVASTATIN 20 MG TAB PO SCH (21:00)
[2020-01-18] VITALS (7 sets, daily range): BP systolic 98–147; BP diastolic 55–76
[2020-01-18] MEDS: METHYLPREDNISOLONE SOD SUCC 40 MG/ML VIAL 1ML IV SCH ×4 (00:12→20:59)
[2020-01-18] MEDS: AZTREONAM (AZACTAM) 0.5 GM in SODIUM CHLORIDE 0.9% 50ML 50 ML IV SCH ×3 (00:12→15:26)
[2020-01-18] MEDS: LEVALBUTEROL HCL SOLN NEBU 1.25 MG/3 ML NEB INH SCH ×2 (01:05→07:00)
[2020-01-18] MEDS: IPRATROPIUM BROMIDE 0.02% 2.5 ML NEB NEB SCH ×3 (01:05→20:00)
--- NOTE | 2020-01-18 07:30 | NUR ---
PATIENT IS ALERT, AWAKE, AND IN STABLE CONDITION WITH NO S/S OF RESPIRATORY DISTRESS. NO PAIN VOICED. IV FLUIDS INFUSING. TELEMETRY APPLIED. CALL LIGHT IS WITHIN REACH, PATIENT INSTRUCTED TO CALL FOR ASSISTANCE NEEDED.
--- NOTE | 2020-01-18 07:43 | NUR ---
REPORT GIVEN TO DAYSHIFT. ALERT. NO SIGNS IV INFILTRATION. BED LOCKED AND IN LOW POSITION. CALL LIGHT WITHIN REACH. BED ALARM ACTIVATED.
[2020-01-18] MEDS: FAMOTIDINE 20 MG/2 ML VIAL IV SCH ×2 (08:41→20:59)
[2020-01-18] MEDS: ASPIRIN 81 MG ENTERIC COATED PO SCH (08:43)
[2020-01-18] MEDS: LISINOPRIL 10 MG TAB PO SCH (08:43)
--- NOTE | 2020-01-18 19:23 | NUR ---
PATIENT IS IN STABLE CONDITION WITH NO S/S OF RESPIRATORY DISTRESS-NO PAIN VOICED. TELE APPLIED. CALL LIGHT IS WITHIN REACH, PATIENT INSTRUCTED TO CALL FOR ASSISTANCE NEEDED. BEDSIDE SHIFT REPORT GIVEN TO ONCOMING NURSE.
--- NOTE | 2020-01-18 20:40 | NUR ---
PATIENT C/O PAIN WITH IV FLUSH TO L HAND. DISCONTINUED IV TO L HAND. START 20G IV TO L AC. SALINE FLUSH. CDI DRESSING APPLIED. TOLERATED PROCEDURE WELL.
[2020-01-18] MEDS ORDERED: PEPCID20 MG PO (20:57)
[2020-01-18] MEDS ORDERED: AZITHROMYCIN500 MG PO (20:57)
[2020-01-18] MEDS ORDERED: ASPIRIN EC81 MG PO (20:57)
[2020-01-18] MEDS ORDERED: SIMVASTATIN20 MG PO (20:57)
[2020-01-18] MEDS ORDERED: PREDNISONE20 MG PO (20:57)
[2020-01-18] MEDS: SIMVASTATIN 20 MG TAB PO SCH (20:59)
--- NOTE | 2020-01-18 21:42 | NUR ---
SPOKE TO MD PEOPLES. ULICESAY TO DISCHARGE HOME.
--- NOTE | 2020-01-18 21:44 | NUR ---
PAGED YASMANI REGARDING POSSIBLE D/C. AWAITING CALL BACK.
--- NOTE | 2020-01-18 21:50 | NUR ---
SPOKE TO MD GRUBER REGARDING POSSIBLE D/C. OKAY TO D/C. NEW ORDERS RECEIVED.
[2020-01-18] MEDS: IPRATROPIUM BROMIDE INHALER 12.9 GM INH INH SCH (21:52)
[2020-01-18] MEDS: AZITHROMYCIN 500MG/NS 250 ML 250 ML IV SCH (23:09)
[2020-01-19] VITALS: BP 144/72
[2020-01-19] MEDS: AZTREONAM (AZACTAM) 0.5 GM in SODIUM CHLORIDE 0.9% 50ML 50 ML IV SCH ×2 (00:33→09:01)
[2020-01-19] MEDS: IPRATROPIUM BROMIDE INHALER 12.9 GM INH INH SCH ×3 (01:00→13:00)
[2020-01-19] MEDS: IPRATROPIUM BROMIDE 0.02% 2.5 ML NEB NEB SCH ×3 (02:00→13:20)
[2020-01-19 04:00] VITALS: BP 138/72
--- NOTE | 2020-01-19 07:14 | NUR ---
REPORT GIVEN TO DAYSHIFT NURSE. ALERT. NO SIGNS IV INFILTRATION. BED LOCKED AND IN LOW POSITION. CALL LIGHT WITHIN REACH. BED ALARM ACTIVATED.
--- NOTE | 2020-01-19 07:20 | NUR ---
PATIENT IS ALERT, AWAKE, AND IN STABLE CONDITION WITH NO S/S OF RESPIRATORY DISTRESS- NO PAIN VOICED. TELEMETRY APPLIED. CALL LIGHT IS WITHIN REACH, PATIENT INSTRUCTED TO CALL FOR ASSISTANCE NEEDED.
[2020-01-19 08:25] VITALS: BP 143/74
[2020-01-19] MEDS: FAMOTIDINE 20 MG/2 ML VIAL IV SCH (09:01)
[2020-01-19] MEDS: METHYLPREDNISOLONE SOD SUCC 40 MG/ML VIAL 1ML IV SCH (09:01)
[2020-01-19] MEDS: LISINOPRIL 10 MG TAB PO SCH (09:02)
[2020-01-19] MEDS: ASPIRIN 81 MG ENTERIC COATED PO SCH (09:02)
[2020-01-19 09:38] VITALS: BP 143/74
[2020-01-19 11:15] VITALS: BP 159/84
--- NOTE | 2020-01-19 14:39 | NUR ---
PATIENT DC HOME- OFF THE UNIT AT 1418 PER WHEELCHAIR AND ACCOMPANIED WITH RN AND PCT TO THE FRONT LOBBY. PATIENT IN STABLE CONDITION WITH NO S/S OF RESPIRATORY DISTRESS- NO PAIN VOICED. IV REMOVED WITH TIP INTACT. DISCHARGE TEACHING, INSTRUCTIONS, AND MEDICATIONS GIVEN TO THE PATIENT. ALL PERSONAL ITEMS TAKEN WITH THE PATIENT.
--- NOTE | 2020-01-21 10:07 | Pulmonary Function Test ---
DATE OF STUDY: REFERRING PHYSICIAN: NAME OF STUDY: Spirometry report. The patient of Dr. Kumar Kulkarni. FINDINGS: Severe obstructive pulmonary disease. Forced vital capacity 2.26 L, 58% of predicted. FEV1 1.39 L, 46%. FEV1/FVC ratio is 61%. FEF of 25 to 75, 29%. There is significant improvement following inhalation of bronchodilators. 12% FVC to 2.53 L and 12% FEV1 to 1.55 L, 52% of predicted. Concomitant restriction cannot be excluded. MD ALCIDES Peña/MODL /[id number]
== END 2020-01-19 14:18 | disposition home or self-care (01) | DRG 191 ==
LOC: ER 18:47 → ERHOLD 18:48 → MED/SURG3 01-15 05:03 → OBSVTOIN 01-16 09:15
PROVIDERS: ADMIT Internal Medicine; ATTEND Internal Medicine
PROC: 4A023N7 Measurement of Cardiac Sampling and Pressure, Left Heart, Percutaneous Approach (ICD-10-PCS; principal; 2020-01-16)
PROC: B2111ZZ Fluoroscopy of Multiple Coronary Arteries using Low Osmolar Contrast (ICD-10-PCS; 2020-01-16)
PROC: B2151ZZ Fluoroscopy of Left Heart using Low Osmolar Contrast (ICD-10-PCS; 2020-01-16)
PROC: 0BDJ8ZX Extraction of Left Lower Lung Lobe, Via Natural or Artificial Opening Endoscopic, Diagnostic (ICD-10-PCS; 2020-01-17)
DX: J44.0 Chronic obstructive pulmonary disease with (acute) lower respiratory infection (principal); N39.0 Urinary tract infection, site not specified; Q60.0 Renal agenesis, unilateral; J21.9 Acute bronchiolitis, unspecified; Z87.891 Personal history of nicotine dependence; I10 Essential (primary) hypertension; E78.5 Hyperlipidemia, unspecified; R53.81 Other malaise; Z90.49 Acquired absence of other specified parts of digestive tract; Z82.49 Family history of ischemic heart disease and other diseases of the circulatory system; Z84.89 Family history of other specified conditions; R07.89 Other chest pain; E66.9 Obesity, unspecified; Z90.710 Acquired absence of both cervix and uterus; I25.10 Atherosclerotic heart disease of native coronary artery without angina pectoris; D14.2 Benign neoplasm of trachea; Z88.0 Allergy status to penicillin; Z88.8 Allergy status to other drugs, medicaments and biological substances; Z11.59 Encounter for screening for other viral diseases; Z68.29 Body mass index [BMI] 29.0-29.9, adult
CPT/HCPCS: 31622; 36415; 71045; 71260; 80053; 80061; 81001; 82550; 82553; 83690; 83735; 83880; 84484; 85025; 85610; 85730; 87040; 87102; 87116; 87205; 87206; 87335; 87400; 87635; 88112; 88305; 93005; 93306; 93458; 94060; 94640; 99152; 99153; 99284; C1766; G0378; J0456; J1650; J1956; J2001; J2250; J2920; J2930; J3010; J7030; Q9967

== ENCOUNTER → 2020-12-22 | Day surgery (SDC) | payer MEDICARE ==
[~2020-12-22] MED LIST changes: +ALPRAZOLAM0.25 M1 PO; +ASPIRIN EC81 MG PO; +ATROVENT HFA12.9 GM INH; +AZITHROMYCIN500 MG PO; +INCRUSE ELLI62.5 MCG INH; +OR PHACO EYE KIT ONE; +PEPCID20 MG PO; +PREDNISONE20 MG PO; +PREOP PHACO EYE KIT ONE; +SIMVASTATIN20 MG PO
[2020-12-22 15:55] VITALS: BP 141/58
== END | disposition home or self-care (01) ==
LOC: OR 14:02
PROVIDERS: ATTEND Ophthalmology
DX: H25.11 Age-related nuclear cataract, right eye (principal); I25.10 Atherosclerotic heart disease of native coronary artery without angina pectoris; K57.90 Diverticulosis of intestine, part unspecified, without perforation or abscess without bleeding; N39.0 Urinary tract infection, site not specified; I10 Essential (primary) hypertension; J44.9 Chronic obstructive pulmonary disease, unspecified; F41.9 Anxiety disorder, unspecified; Z88.0 Allergy status to penicillin; Z88.8 Allergy status to other drugs, medicaments and biological substances; Z87.01 Personal history of pneumonia (recurrent); Z87.891 Personal history of nicotine dependence

== ENCOUNTER → 2022-01-04 | Outpatient (CLI) | payer MEDICARE ==
[~2022-01-04] MED LIST changes: -OR PHACO EYE KIT ONE; -PREOP PHACO EYE KIT ONE
== END ==
LOC: DX 09:25
PROVIDERS: ATTEND Internal Medicine Gastroenterology
DX: R10.11 Right upper quadrant pain (principal)
CPT/HCPCS: 0223U; 36415; 74246; 74250